=== PATIENT | female | born 1995 | race American Indian/Alaskan Native ===

== ENCOUNTER 2021-08-03 01:09 | Emergency (ER) | payer SELFPAY ==
[2021-08-03 01:22] VITALS: BP 124/90
[2021-08-03 01:58] LABS: HCG Qualitative,Urine Negative (Negative)
[2021-08-03 02:07] LABS: Bilirubin,Urine SM (Negative); Blood,Urine SM (Negative); Color,Urine Amber (Yellow); Mucus,Urine 3+ /HPF; Urobilinogen,Urine < 2.0 mg/dL (<2.0)
[2021-08-03 02:12] LABS: WBC,Urine > 182.0 /HPF (0.0-6.0)
[2021-08-03 02:29] LABS: Ictotest,Urine Positive (Negative)
== END 2021-08-03 02:00 | disposition left against medical advice (07) ==
LOC: ED 01:09
DX: F41.9 Anxiety disorder, unspecified (principal); Z53.21 Procedure and treatment not carried out due to patient leaving prior to being seen by health care provider
CPT/HCPCS: 81001; 81025